=== PATIENT | female | born 1995 | race Caucasian/White ===

== ENCOUNTER 2020-02-01 09:22 | Day surgery (SDC) | payer BC ==
[2020-01-25 11:57] LABS: BASOPHILS % (AUTO) 0.5 % (0-1); EOSINOPHILS # (AUTO) 0.1 X10'3 (0-0.9); EOSINOPHILS % (AUTO) 1.7 % (0-6); LYMPHOCYTES # (AUTO) 2.2 X10'3 (1.1-4.8); LYMPHOCYTES % (AUTO) 28.5 % (21-51); MEAN CORPUSCULAR HEMOGLOBIN 29.4 PG (27.0-31.0); MEAN CORPUSCULAR HGB CONC 34.1 g/dL (33.0-36.5); MEAN CORPUSCULAR VOLUME 86.2 FL (78-98); MONOCYTES # (AUTO) 0.6 X10'3 (0-0.9); MONOCYTES % (AUTO) 7.4 % (2-12); NEUTROPHILS # (AUTO) 4.8 X10'3 (1.8-7.7); NEUTROPHILS % (AUTO) 61.9 % (42-75); PRE OP HEMATOCRIT 43.3 % (35.0-45.0); PRE OP HEMOGLOBIN 14.8 g/dL (12.0-16.0); PRE OP PLATELET COUNT 334 X10'3 (140-440); RED BLOOD COUNT 5.02 X10'6 (4.20-5.60)
[2020-01-25 11:58] LABS: ALBUMIN 4.4 G/DL (3.4-5.0); ALBUMIN/GLOBULIN RATIO 1.2 (1.1-1.5); ALKALINE PHOSPHATASE 73 IU/L (46-116); BLOOD UREA NITROGEN 12 MG/DL (7-18); BUN/CREATININE RATIO 17.6 (6.6-38.0); CHLORIDE 105 MMOL/L (99-107); CREATININE 0.68 MG/DL (0.40-0.90); PRE OP ALT 21 U/L (30-65); PRE OP ANION GAP 4 (8-16); PRE OP AST 9 U/L (10-37); PRE OP BILIRUB, TOTAL 1.1 MG/DL (0.0-1.0); PRE OP GLUCOSE 71 MG/DL (70-104); PRE OP POTASSIUM 3.6 MMOL/L (3.4-5.1); PRE OP SODIUM 139 MMOL/L (135-145); TOTAL CARBON DIOXIDE 29.6 MMOL/L (24-32); eGFR > 90 ML/MIN
[2020-01-25 12:02] LABS: CLARITY,URINE CLEAR (Clear); COLOR,URINE YELLOW (Yellow); GLUCOSE, URINE NEGATIVE (Neg); KETONES,URINE NEGATIVE (Neg); LEUKOCYTE ESTERASE ,URINE NEGATIVE (Neg); NITRITES, URINE NEGATIVE (Neg); OCCULT BLOOD,URINE TRACE-INTACT (Neg); PROTEIN,URINE NEGATIVE (Neg); UROBILINOGEN,URINE 0.2 E.U/dL (0.2-1.0)
[2020-01-25 12:05] LABS: UA COLLECTION TYPE CLN CATCH MIDSTREAM
[2020-01-25 12:10] LABS: BACTERIA,URINE 1+ /HPF (Neg); RBC,URINE NONE SEEN /HPF (0-2); SQUAMOUS EPITHELIAL CELL,UR MODERATE /LPF (FEW); WBC,URINE 0-4 /HPF (0-4)
[2020-01-25 12:37] LABS: HCG SERUM QL NEGATIVE
[~2020-02-01] VITALS: Ht 154.9 cm; Wt 63.0 kg
[2020-02-01] VITALS (13 sets, daily range): BP systolic 91–120; BP diastolic 51–76
[~2020-02-01 09:22] MED LIST: ACET-1025 PO; ASPI1TAB2 PO; CALC500T11 PO; ceFOXitin sod/dextrose 2g/50ml 50 ML IV ONE; famotidine 10mg tablet PO ONE; ringers solution, lacted 1,000 ML IV SCH
[2020-02-01] MEDS ORDERED: ondansetron/PF 4mg/2ml inj IV PRN (10:55)
[2020-02-01] MEDS ORDERED: labetalol 20mg/4ml (5mg/ml) syringe IV PRN (10:55)
[2020-02-01] MEDS ORDERED: ringers solution, lacted 1,000 ML IV SCH (10:55)
[2020-02-01] MEDS ORDERED: morphine 2 MG/ML inj. syringe IV PRN (10:55)
[2020-02-01] MEDS ORDERED: hydrALAZINE 20mg/ml inj. IV PRN (10:55)
[2020-02-01] MEDS ORDERED: morphine 4 MG/ML inj SYRINge IV PRN (10:55)
[2020-02-01] MEDS ORDERED: fentaNYL/PF 50MCG/1 ML 2ML syringe IV PRN ×2 (10:55)
[2020-02-01] MEDS ORDERED: BUPIVAcaine 0.25% w/Epi /PF 30ml vial ONE (10:56)
[2020-02-01] MEDS ORDERED: BUPIVAcaine/PF 2.5 mg/ml (0.25%) 30ml vial ONE (10:57)
[2020-02-01] MEDS ORDERED: dexamethasone sod phosphate 10mg/ml inj ONE (12:01)
[2020-02-01] MEDS ORDERED: neostigmine methylsulfate 1 MG/ML 10ml vial ONE (12:01)
[2020-02-01] MEDS ORDERED: sevoflurane 250ml liquid IH ONE (12:01)
[2020-02-01] MEDS ORDERED: fentaNYL/PF 50MCG/1 ML 2ML syringe ONE (12:09)
[2020-02-01] MEDS ORDERED: midazolam 2 mg/2 ml injection ONE ×2 (12:09→12:27)
[2020-02-01] MEDS ORDERED: rocuronium 10mg/ml inj IV ONE (12:15)
[2020-02-01] MEDS ORDERED: propofol inj 20 ML IV ONE (12:15)
[2020-02-01] MEDS ORDERED: LIDOcaine 2% (20mg/ml) 5ml vial ONE (12:15)
[2020-02-01] MEDS ORDERED: glycopyrrolate 0.2mg/ml inj ONE (12:16)
[2020-02-01] MEDS ORDERED: ondansetron/PF 4mg/2ml inj ONE (12:17)
[2020-02-01] MEDS ORDERED: metoprolol tartrate 1mg/ml inj IV ONE ×2 (12:20→12:30)
--- NOTE | 2020-02-01 13:51 | NUR ---
Received from OR via , accompanied by Anesthesiologist DR ROBERTSON and report given by Anesthesiolgist. AWAKENS TO VOICE. VITALS STABLE. NO BLEEDING NOTED. ABD SOFT.
[2020-02-01] MEDS ORDERED: acetaminophen 1,000mg/100ml IV 100 ML IV ONE (14:35)
[2020-02-01] MEDS ORDERED: ketorolac trometh. 30mg/ml inj. IV ONE (14:40)
--- NOTE | 2020-02-01 15:41 | NUR ---
AWAKE AND ORIENTED. VITALS STABLE. LOUISE PAD DI. STATES PAIN IMPROVING. [facility]
== END 2020-02-01 15:41 | disposition home or self-care (01) ==
LOC: PRE-OP 09:22
PROVIDERS: ATTEND Obstetrics & Gynecology Obstetrics
DX: R10.2 Pelvic and perineal pain (principal); N80.1 Endometriosis of ovary; N80.3 Endometriosis of pelvic peritoneum; J45.909 Unspecified asthma, uncomplicated; F41.9 Anxiety disorder, unspecified; G43.909 Migraine, unspecified, not intractable, without status migrainosus; F32.9 Major depressive disorder, single episode, unspecified; K21.9 Gastro-esophageal reflux disease without esophagitis; E11.9 Type 2 diabetes mellitus without complications; Z98.890 Other specified postprocedural states; Z86.32 Personal history of gestational diabetes; Z88.8 Allergy status to other drugs, medicaments and biological substances; Z79.899 Other long term (current) drug therapy; Z79.82 Long term (current) use of aspirin; Z83.3 Family history of diabetes mellitus; Z80.41 Family history of malignant neoplasm of ovary; Z20.828 Contact with and (suspected) exposure to other viral communicable diseases
CPT/HCPCS: 36415; 58662; 80053; 81001; 82948; 84703; 85025; 86885; 86900; 86901; 87635; J0131; J0694; J1100; J1885; J2001; J2250; J2405; J2704; J2710; J3010; J3490; J7120; A4618; A7000

== ENCOUNTER 2020-05-11 11:31 | Emergency (ER) | payer BC ==
[~2020-05-11] VITALS: Ht 157.5 cm; Wt 63.6 kg
[~2020-05-11 11:31] MED LIST changes: -ceFOXitin sod/dextrose 2g/50ml 50 ML IV ONE; -famotidine 10mg tablet PO ONE; -ringers solution, lacted 1,000 ML IV SCH
[2020-05-11 11:33] VITALS: BP 108/67
[2020-05-11] MEDS ORDERED: ERYT1OIN6 LEFTEYE (12:12)
== END 2020-05-11 12:39 | disposition home or self-care (01) ==
LOC: ER 11:32
DX: H10.9 Unspecified conjunctivitis (principal); J45.909 Unspecified asthma, uncomplicated; Z90.89 Acquired absence of other organs; Z87.440 Personal history of urinary (tract) infections; Z88.8 Allergy status to other drugs, medicaments and biological substances; Z79.82 Long term (current) use of aspirin; Z79.2 Long term (current) use of antibiotics; Z79.899 Other long term (current) drug therapy
CPT/HCPCS: 99283

== ENCOUNTER 2020-10-16 14:01 | Emergency (ER) | payer BC ==
[~2020-10-16] VITALS: Ht 157.5 cm; Wt 60.5 kg
[2020-10-16 20:11] LABS: URINE HCG NEGATIVE (NEG)
[2020-10-16 20:20] LABS: CLARITY,URINE CLEAR (Clear); COLOR,URINE YELLOW (Yellow); GLUCOSE, URINE NEGATIVE (Neg); KETONES,URINE NEGATIVE (Neg); LEUKOCYTE ESTERASE ,URINE NEGATIVE (Neg); NITRITES, URINE NEGATIVE (Neg); OCCULT BLOOD,URINE NEGATIVE (Neg); PROTEIN,URINE NEGATIVE (Neg); UROBILINOGEN,URINE 0.2 E.U/dL (0.2-1.0)
[2020-10-16 20:40] LABS: UA COLLECTION TYPE CLN CATCH MIDSTREAM
[2020-10-16 21:10] VITALS: BP 122/68
== END 2020-10-16 21:11 | disposition home or self-care (01) ==
LOC: ER 14:01
DX: R10.32 Left lower quadrant pain (principal); J45.909 Unspecified asthma, uncomplicated; Z87.440 Personal history of urinary (tract) infections; Z90.89 Acquired absence of other organs; Z88.1 Allergy status to other antibiotic agents; Z88.8 Allergy status to other drugs, medicaments and biological substances; Z79.82 Long term (current) use of aspirin; Z79.899 Other long term (current) drug therapy
CPT/HCPCS: 81003; 81025; 99283